=== PATIENT | female | born 1960 | race Caucasian/White ===

== ENCOUNTER 2017-02-21 11:45 | Emergency (ER) | payer OTHER ==
[2017-02-21 11:52] VITALS: PULSE 82; RESP 20
--- NOTE | 2017-02-21 13:00 | EDPHY ---
H & P Stated Complaint: URI SYMPTOMS/DIARRHEA/BACK PAIN Time Seen by Provider: 02/21/17 11:57 HPI/ROS: Chief Complaint: Cough HPI: 56-year-old woman presenting complaining of persistent cough the last 5 days. Is productive of clear sputum. No fevers or chills. No chest pain. Some nausea no vomiting. No urinary symptoms. No abdominal pain. Did have 3 loose stools yesterday. Patient also states she has a history of chronic back pain. Has had a recent MRI but has not followed up with back specialist. She is asking if she can get some refills of her chronic pain medications and some Xanax to help her sleep at night. ROS: 10 point Review of Systems is negative except as noted in the HPI. PMH: Chronic back pain Social History: No smoking, occasional alcohol, no recreational drug use Family History: non-contributory Physical Exam: Gen: Awake, Alert, No Distress HEENT: Nose: no rhinorrhea Eyes: PERRLA, EOMI Mouth: Moist mucosa Neck: Supple, no JVD Chest: nontender, lungs clear to auscultation Heart: S1, S2 normal, no murmur Abd: Soft, non-tender, no guarding Back: no CVA tenderness, no midline tenderness Ext: no edema, non-tender Skin: no rash Neuro: CN II-XII intact, Sensation grossly intact, Strength 5/5 in bilateral upper and lower extremities - Personal History Current Tetanus/Diphtheria Vaccine: No - Medical/Surgical History Hx Asthma: No Hx Chronic Respiratory Disease: No Hx Diabetes: No Hx Cardiac Disease: No Hx Renal Disease: No Hx Cirrhosis: No Hx Alcoholism: No Hx HIV/AIDS: No Hx Splenectomy or Spleen Trauma: No Other PMH: HYSTERECTOMY - Social History Smoking Status: Never smoked Constitutional: Initial Vital Signs Temperature (C) 36.8 C 02/21/17 11:50 Heart Rate 82 02/21/17 11:50 Respiratory Rate 20 02/21/17 11:50 Blood Pressure 146/106 H 02/21/17 11:50 O2 Sat (%) 98 02/21/17 11:50 O2 Delivery Mode Room Air Allergies/Adverse Reactions: No Known Allergies Allergy (Unverified 02/21/17 11:49) Home Medications: Medication Instructions Recorded Albuterol [Proventil Inhaler HFA 1 - 2 puffs IH Q4H PRN #1 mdi 02/21/17 (*)] Inhaler, Assist Devices [Space 1 each MC Q4H PRN #1 spacer 02/21/17 Chamber Plus] Medical Decision Making ED Course/Re-evaluation: 56-year-old with cough productive of clear sputum. She has been no significant findings on examination. She is afebrile. She has clear lung jha. She is having cough worse at night. Will give her an albuterol MDI with spacer to treat those symptoms. I have explained to her that I do not prescribe opiate analgesics for chronic conditions. She will need to follow up with her with the primary care physician. I will give her referral for this. She should also follow up with her back doctor for further evaluation and management of her chronic pain. She has no acute neurologic findings today is ambulating without difficulty. Departure - Departure Disposition: Home, Routine, Self-Care Clinical Impression: Acute bronchitis Condition: Good Instructions: Acute Bronchitis (ED) Additional Instructions: Follow up with back specialist and with primary care physician in 3-4 days for re-evaluation. Return emergency department for increasing chest pain, shortness of breath, fevers, chills, or any other concerns. Referrals: Emily Wallis MD [Doctor of Osteopathy] - As per Instructions Prescriptions: Albuterol [Proventil Inhaler HFA (*)] 1 - 2 puffs IH Q4H PRN #1 mdi PRN Reason: Cough, Severe Inhaler, Assist Devices [Space Chamber Plus] 1 each MC Q4H PRN #1 spacer PRN Reason: Wheezing
[2017-02-21 13:33] VITALS: BP 143/97; TEMP 97.9; O2SAT 87
== END 2017-02-21 13:33 | disposition home or self-care (01) ==
DX: J20.9 Acute bronchitis, unspecified (principal)